=== PATIENT | female | born 1960 | race Caucasian/White ===

== ENCOUNTER 2018-05-13 09:33 | Emergency (ER) | payer OTHER ==
[~2018-05-13] VITALS: Ht 165.1 cm; Wt 86.2 kg
[~2018-05-13 09:33] MED LIST: ALBU90OI; ALBU90OI6 INH; ALPR1 PO; AMIT50; AMIT75; AMLO5 PO; AMOCLA875 PO; AMOX500 PO; AMPDEX10CR PO; ARIP10 PO; ASPI325EC PO; Amoxicillin500 MG PO; BENZ100A PO; CARB50; CARI350 PO; CEFD300; CEPH500; CEPH500 PO; CIPR250 PO; CIPR500; CIPR500 PO; CIPRO500 MG PO; CLIN300; CLON.5; CLON1; CLOT1TL; CYAN1000I; DEXT10ER PO; DIAZ2 PO; DOCU100; DULO30 PO; ERGO400; FERR325; FLUO10 PO; FLUO20; FLUSAL1005; FLUSAL2505; HYDACE10B; HYDACE5 PO; HYDHCL25 PO; IBUP200; IRON; KETO10 PO; LEVFLO500 PO; LIOT25; LIOT5; LORA1; LORA1 PO; LORA2 PO; METPRE4DP PO; MULVITA; MULVITMIND PO; NAPR550 PO; NARDIL; NITR100CA; Norco 10-325 T1 EACH PO; Norco 5-325 Ta1 EACH PO; Norvasc5 MG PO; OMEP20ER; ONDA4 PO; OXYACE5T; OXYACE5T PO; OXYASA5T PO; OXYC10TA19 PO; OXYC5 PO; PHENA200 PO; PRAM.5; PRED10 PO; PREG50; PREG75; PROACE100 PO; PROM25 PO; Percocet 5-3251 EACH PO; QUET100; RXHYDACE PO; RXNAPNA550 PO; TRAM50; TRAM50 PO; VITA25000 PO; Vicoprofen 2001 EACH PO; ZOLP5; Zofran Odt4 MG SL
[2018-05-13] MEDS ORDERED: AMLO5 PO (09:49)
[2018-05-13] MEDS ORDERED: ALPR1 PO (09:49)
[2018-05-13] MEDS ORDERED: PROP10 PO (09:50)
[2018-05-13 10:34] LABS: BASOPHILS ABSOLUTE AUTO 0.02 K/mm3 (0.00-0.23); BASOPHILS PERCENT AUTO 0 % (0-2); EOSINOPHILS ABSOLUTE AUTO 0.12 K/mm3 (0.00-0.68); EOSINOPHILS PERCENT AUTO 2 % (0-6); Hematocrit 41.3 % (33.0-51.0); Hemoglobin 13.1 g/dL (11.5-16.0); IMMATURE GRAN ABSOLUTE AUTO 0.01 K/mm3 (0.00-0.10); IMMATURE GRAN PERCENT AUTO 0 % (0-1); LYMPHOCYTES ABSOLUTE AUTO 1.45 K/mm3 (0.84-5.20); LYMPHOCYTES PERCENT AUTO 25 % (21-46); MONOCYTES ABSOLUTE AUTO 0.54 K/mm3 (0.16-1.47); MONOCYTES PERCENT AUTO 9 % (4-13); Mean Corpuscular HGB 26.8 pg (26.0-34.0); Mean Corpuscular HGB Conc 31.7 g/dL (31.5-36.5); Mean Corpuscular Volume 85 fL (80-100); NEUTROPHILS ABSOLUTE AUTO 3.61 K/mm3 (1.96-9.15); NEUTROPHILS PERCENT AUTO 63 % (41-73); RDW Coefficient Variation 14.2 % (11.7-14.2); RDW Standard Deviation 43.8 fL (35.1-46.3); Red Blood Cell Count 4.89 M/mm3 (3.80-5.20); White Blood Cell Count 5.75 K/mm3 (4.00-11.30)
[2018-05-13 10:52] LABS: Mean Platelet Volume 10.2 fL (9.1-12.4); Platelet Count 202 K/mm3 (150-400)
[2018-05-13 10:57] LABS: Alanine Aminotransfer (ALT/SGP 20 U/L (12-78); Albumin, Blood 3.5 g/dL (3.4-5.0); Alk Phos 88 U/L (50-136); Anion Gap 7 mmol/L (6-16); Aspartate Aminotrans (AST/SGOT 31 U/L (12-37); Bilirubin, Total 0.5 mg/dL (0.1-1.0); Blood Urea Nitrogen 20 mg/dL (8-24); Bun/Creatinine Ratio 25.4 (12.0-20.0); CO2, Blood 28 mmol/L (21-32); Calcium, Blood 8.7 mg/dL (8.5-10.1); Chloride, Blood 105 mmol/L (98-108); Creatinine, Blood 0.79 mg/dL (0.40-1.00); Globulin, Blood 3.5 g/dL (2.2-4.0); Glomerular Filtration Rate >60 (60-); Glucose, Blood 103 mg/dL (70-99); Potassium, Blood 4.2 mmol/L (3.5-5.5); Sodium, Blood 140 mmol/L (136-145)
[2018-05-13 11:57] LABS: Source, Urine Clean Catch
[2018-05-13 12:02] LABS: Bilirubin, Urine Neg (Neg); Blood, Urine 5+ (Neg); Glucose Qualitative, Urine Neg (Neg); Ketones, Urine Neg (Neg); Leukocyte Esterase, Urine 2+ (Neg); Nitrite, Urine Neg (Neg); Protein, Urine 2+ (Neg); Urobilinogen, Urine NORM (Normal)
[2018-05-13 12:29] LABS: Appearance, Urine Cloudy (Clear); Color, Urine Amber (P-Yellow)
[2018-05-13 12:31] LABS: Bacteria Few /hpf; Mucus Mod (0-Heavy); Red Blood Cells, Urine 50-100 /hpf (0-2); Squamous Epithelial Cells Few /hpf (Few)
[2018-05-13] MEDS ORDERED: Zofran Odt4 MG SL (12:59)
[2018-05-13] MEDS ORDERED: CEPH500 PO (12:59)
[2018-05-13] MEDS ORDERED: KETO10 PO (12:59)
[2018-05-13] MEDS ORDERED: Norco 5-325 Ta1 EACH PO (13:31)
[2018-05-13] MEDS ORDERED: Flomax0.4 MG PO (13:31)
== END 2018-05-13 13:45 | disposition home or self-care (01) ==
LOC: ER 09:33
PROVIDERS: Physician Assistant
DX: N13.2 Hydronephrosis with renal and ureteral calculous obstruction (principal); K57.30 Diverticulosis of large intestine without perforation or abscess without bleeding; N39.0 Urinary tract infection, site not specified; I10 Essential (primary) hypertension; F32.9 Major depressive disorder, single episode, unspecified; J45.909 Unspecified asthma, uncomplicated; Z88.5 Allergy status to narcotic agent; Z88.2 Allergy status to sulfonamides; Z88.6 Allergy status to analgesic agent; Z91.02 Food additives allergy status; Z79.899 Other long term (current) drug therapy; Z87.442 Personal history of urinary calculi
CPT/HCPCS: 36415; 74176; 80053; 81001; 83690; 85025; 87077; 87086; 87186; 96361; 96374; 96375; 99284-25; J1885; J2405; J7030

== ENCOUNTER 2021-03-31 12:14 | Emergency (ER) | payer OTHER ==
[~2021-03-31] VITALS: Ht 167.6 cm; Wt 86.2 kg
[~2021-03-31 12:14] MED LIST changes: +Flomax0.4 MG PO; +PROP10 PO
[2021-03-31 13:14] LABS: BASOPHILS ABSOLUTE AUTO 0.04 K/mm3 (0.00-0.23); BASOPHILS PERCENT AUTO 1 % (0-2); EOSINOPHILS ABSOLUTE AUTO 0.14 K/mm3 (0.00-0.68); EOSINOPHILS PERCENT AUTO 2 % (0-6); Hematocrit 39.8 % (33.0-51.0); IMMATURE GRAN ABSOLUTE AUTO 0.02 K/mm3 (0.00-0.10); IMMATURE GRAN PERCENT AUTO 0 % (0-1); LYMPHOCYTES ABSOLUTE AUTO 2.18 K/mm3 (0.84-5.20); LYMPHOCYTES PERCENT AUTO 33 % (21-46); MONOCYTES ABSOLUTE AUTO 0.58 K/mm3 (0.16-1.47); MONOCYTES PERCENT AUTO 9 % (4-13); Mean Corpuscular HGB Conc 30.2 g/dL (31.5-36.5); Mean Corpuscular Volume 76 fL (80-100); Mean Platelet Volume 9.6 fL (9.1-12.4); NEUTROPHILS PERCENT AUTO 55 % (41-73); Platelet Count 378 K/mm3 (150-400); RDW Coefficient Variation 16.8 % (11.7-14.2); RDW Standard Deviation 45.1 fL (35.1-46.3); Red Blood Cell Count 5.22 M/mm3 (3.80-5.20); White Blood Cell Count 6.56 K/mm3 (4.00-11.30)
[2021-03-31 13:34] LABS: Alanine Aminotransfer (ALT/SGP 19 U/L (12-78); Albumin, Blood 3.7 g/dL (3.4-5.0); Albumin/Globulin Ratio 0.9 (0.8-1.8); Alk Phos 104 U/L (50-136); Anion Gap 4 mmol/L (6-16); Aspartate Aminotrans (AST/SGOT 18 U/L (12-37); Bilirubin, Total 0.2 mg/dL (0.1-1.0); Blood Urea Nitrogen 19 mg/dL (8-24); Bun/Creatinine Ratio 24.6 (12.0-20.0); CO2, Blood 28 mmol/L (21-32); Calcium, Blood 8.7 mg/dL (8.5-10.1); Chloride, Blood 104 mmol/L (98-108); Creatinine, Blood 0.77 mg/dL (0.40-1.00); Globulin, Blood 4.2 g/dL (2.2-4.0); Glomerular Filtration Rate >60 (60-); Glucose, Blood 99 mg/dL (70-99); Potassium, Blood 4.3 mmol/L (3.5-5.5); Sodium, Blood 136 mmol/L (136-145); Total Protein, Blood 7.9 g/dL (6.4-8.2); Troponin I <0.015 ng/mL (0.000-0.040)
[2021-03-31] MEDS ORDERED: LASIX20 M2 PO (15:15)
[2021-03-31] MEDS ORDERED: POTCHL20ER PO (15:15)
== END 2021-03-31 15:25 | disposition home or self-care (01) ==
LOC: ER 12:14
PROVIDERS: Physician Assistant
DX: I11.0 Hypertensive heart disease with heart failure (principal); I50.9 Heart failure, unspecified; J45.909 Unspecified asthma, uncomplicated; Z79.899 Other long term (current) drug therapy; Z87.442 Personal history of urinary calculi
CPT/HCPCS: 36415; 71046; 80053; 83880; 84484; 85025; 93005; 93010; 99284-25

== ENCOUNTER → 2022-05-22 | Outpatient (CLI) | payer OTHER ==
[~2022-05-22] MED LIST changes: +LASIX20 M2 PO; +POTCHL20ER PO
[2022-05-22 18:53] LABS: BASOPHILS ABSOLUTE AUTO 0.07 K/mm3 (0.00-0.23); BASOPHILS PERCENT AUTO 1 % (0-2); EOSINOPHILS ABSOLUTE AUTO 0.04 K/mm3 (0.00-0.68); EOSINOPHILS PERCENT AUTO 0 % (0-6); Hemoglobin 15.1 g/dL (11.5-16.0); IMMATURE GRAN ABSOLUTE AUTO 0.03 K/mm3 (0.00-0.10); IMMATURE GRAN PERCENT AUTO 0 % (0-1); LYMPHOCYTES ABSOLUTE AUTO 2.02 K/mm3 (0.84-5.20); LYMPHOCYTES PERCENT AUTO 17 % (21-46); MONOCYTES ABSOLUTE AUTO 0.81 K/mm3 (0.16-1.47); MONOCYTES PERCENT AUTO 7 % (4-13); Mean Corpuscular HGB 26.4 pg (26.0-34.0); Mean Corpuscular HGB Conc 31.5 g/dL (31.5-36.5); Mean Corpuscular Volume 84 fL (80-100); Mean Platelet Volume 11.2 fL (9.1-12.4); NEUTROPHILS ABSOLUTE AUTO 8.93 K/mm3 (1.96-9.15); NEUTROPHILS PERCENT AUTO 75 % (41-73); Platelet Count 337 K/mm3 (150-400); RDW Coefficient Variation 15.5 % (11.7-14.2); RDW Standard Deviation 47.3 fL (35.1-46.3); Red Blood Cell Count 5.71 M/mm3 (3.80-5.20)
[2022-05-22 21:32] LABS: Alanine Aminotransfer (ALT/SGP 25 U/L (12-78); Albumin, Blood 3.8 g/dL (3.4-5.0); Alk Phos 97 U/L (50-136); Anion Gap 13 mmol/L (6-16); Aspartate Aminotrans (AST/SGOT 27 U/L (12-37); Bilirubin, Total 0.4 mg/dL (0.1-1.0); Blood Urea Nitrogen 17 mg/dL (8-24); Bun/Creatinine Ratio 23.2 (12.0-20.0); CHOL/HDL RATIO 4.1; CO2, Blood 23 mmol/L (21-32); Calcium, Blood 9.7 mg/dL (8.5-10.1); Chloride, Blood 106 mmol/L (98-108); Cholesterol 230 mg/dL (50-200); Creatinine, Blood 0.73 mg/dL (0.40-1.00); Glomerular Filtration Rate 95 (60-); Glucose, Blood 112 mg/dL (70-99); HDL Cholesterol 56 mg/dL (>39); LDL/HDL RATIO 2.5; Low Density Lipoprotein Chol 141 mg/dL (0-110); Sodium, Blood 142 mmol/L (136-145); Thyroid Stimulating Hormone 0.987 uIU/mL (0.360-4.800); Total Protein, Blood 7.8 g/dL (6.4-8.2); Triglycerides 165 mg/dL (30-160); Very Low Density Lipoprot Chol 33 mg/dL (6-32)
== END | disposition home or self-care (01) ==
LOC: LAB SHORT 17:46 → LAB 17:46
PROVIDERS: Nurse Practitioner Family
DX: Z13.220 Encounter for screening for lipoid disorders (principal); F41.8 Other specified anxiety disorders; R53.83 Other fatigue
CPT/HCPCS: 80053; 80061; 84443; 85025

== ENCOUNTER → 2022-05-22 | Outpatient (CLI) | payer OTHER | END | disposition home or self-care (01) | LOC: LAB 15:30 → LAB SHORT 15:30 | DX: R31.9 Hematuria, unspecified (principal) | CPT/HCPCS: 87086 ==

== ENCOUNTER 2022-08-17 11:37 | Emergency (ER) | payer OTHER ==
[~2022-08-17] VITALS: Ht 167.6 cm; Wt 72.6 kg
[2022-08-17 13:16] LABS: BASOPHILS ABSOLUTE AUTO 0.04 K/mm3 (0.00-0.23); BASOPHILS PERCENT AUTO 1 % (0-2); EOSINOPHILS ABSOLUTE AUTO 0.08 K/mm3 (0.00-0.68); EOSINOPHILS PERCENT AUTO 1 % (0-6); Hematocrit 43.8 % (33.0-51.0); Hemoglobin 13.6 g/dL (11.5-16.0); IMMATURE GRAN ABSOLUTE AUTO 0.01 K/mm3 (0.00-0.10); IMMATURE GRAN PERCENT AUTO 0 % (0-1); LYMPHOCYTES ABSOLUTE AUTO 1.35 K/mm3 (0.84-5.20); LYMPHOCYTES PERCENT AUTO 16 % (21-46); MONOCYTES ABSOLUTE AUTO 0.61 K/mm3 (0.16-1.47); MONOCYTES PERCENT AUTO 7 % (4-13); Mean Corpuscular HGB 25.7 pg (26.0-34.0); Mean Corpuscular HGB Conc 31.1 g/dL (31.5-36.5); Mean Corpuscular Volume 83 fL (80-100); Mean Platelet Volume 9.8 fL (9.1-12.4); NEUTROPHILS ABSOLUTE AUTO 6.17 K/mm3 (1.96-9.15); NEUTROPHILS PERCENT AUTO 75 % (41-73); Platelet Count 352 K/mm3 (150-400); RDW Coefficient Variation 14.6 % (11.7-14.2); RDW Standard Deviation 43.8 fL (35.1-46.3); White Blood Cell Count 8.26 K/mm3 (4.00-11.30)
[2022-08-17 13:53] LABS: Albumin, Blood 3.4 g/dL (3.4-5.0); Albumin/Globulin Ratio 0.9 (0.8-1.8); Bilirubin, Total 0.5 mg/dL (0.1-1.0); Bun/Creatinine Ratio 16.8 (12.0-20.0); Calcium, Blood 9.4 mg/dL (8.5-10.1); Creatinine, Blood 0.78 mg/dL (0.40-1.00); Globulin, Blood 3.7 g/dL (2.2-4.0); Potassium, Blood 3.7 mmol/L (3.5-5.5); Total Protein, Blood 7.1 g/dL (6.4-8.2)
[2022-08-17] MEDS ORDERED: ZOLP10 PO (15:29)
== END 2022-08-17 16:58 | disposition home or self-care (01) ==
LOC: ER 11:37
PROVIDERS: Physician Assistant
DX: R06.00 Dyspnea, unspecified (principal); I10 Essential (primary) hypertension; J45.909 Unspecified asthma, uncomplicated; Z88.5 Allergy status to narcotic agent; Z88.2 Allergy status to sulfonamides; Z88.8 Allergy status to other drugs, medicaments and biological substances; Z91.02 Food additives allergy status; Z79.899 Other long term (current) drug therapy
CPT/HCPCS: 36415; 71046; 80053; 83690; 84484; 85025; 93005; 93010

== ENCOUNTER 2022-08-19 12:08 | Emergency (ER) | payer OTHER ==
[~2022-08-19] VITALS: Ht 165.1 cm; Wt 90.7 kg
[~2022-08-19 12:08] MED LIST changes: +ZOLP10 PO
[2022-08-19 12:47] LABS: BASOPHILS ABSOLUTE AUTO 0.03 K/mm3 (0.00-0.23); BASOPHILS PERCENT AUTO 0 % (0-2); EOSINOPHILS ABSOLUTE AUTO 0.18 K/mm3 (0.00-0.68); EOSINOPHILS PERCENT AUTO 2 % (0-6); Hematocrit 41.3 % (33.0-51.0); Hemoglobin 13.4 g/dL (11.5-16.0); IMMATURE GRAN ABSOLUTE AUTO 0.02 K/mm3 (0.00-0.10); IMMATURE GRAN PERCENT AUTO 0 % (0-1); LYMPHOCYTES ABSOLUTE AUTO 1.83 K/mm3 (0.84-5.20); LYMPHOCYTES PERCENT AUTO 20 % (21-46); MONOCYTES PERCENT AUTO 9 % (4-13); Mean Corpuscular HGB 25.9 pg (26.0-34.0); Mean Corpuscular HGB Conc 32.4 g/dL (31.5-36.5); Mean Corpuscular Volume 80 fL (80-100); Mean Platelet Volume 9.8 fL (9.1-12.4); NEUTROPHILS ABSOLUTE AUTO 6.13 K/mm3 (1.96-9.15); NEUTROPHILS PERCENT AUTO 68 % (41-73); Platelet Count 347 K/mm3 (150-400); RDW Coefficient Variation 14.6 % (11.7-14.2); RDW Standard Deviation 42.5 fL (35.1-46.3); Red Blood Cell Count 5.17 M/mm3 (3.80-5.20); White Blood Cell Count 8.99 K/mm3 (4.00-11.30)
[2022-08-19 13:27] LABS: Albumin, Blood 3.2 g/dL (3.4-5.0); Albumin/Globulin Ratio 0.8 (0.8-1.8); Bilirubin, Total 0.6 mg/dL (0.1-1.0); Bun/Creatinine Ratio 13.1 (12.0-20.0); Calcium, Blood 9.4 mg/dL (8.5-10.1); Creatinine, Blood 0.76 mg/dL (0.40-1.00); Globulin, Blood 4.2 g/dL (2.2-4.0); Potassium, Blood 3.7 mmol/L (3.5-5.5); Total Protein, Blood 7.4 g/dL (6.4-8.2)
[2022-08-19] MEDS ORDERED: IBUP800 PO (16:28)
[2022-08-19] MEDS ORDERED: AMOCLA875 PO (16:28)
[2022-08-19] MEDS ORDERED: ONDA4ODT MM (16:28)
[2022-08-19] MEDS ORDERED: Almacone Liqui355 ML PO (16:28)
[2022-08-19] MEDS ORDERED: MORP15ER PO (16:29)
== END 2022-08-19 18:00 | disposition home or self-care (01) ==
LOC: ER 12:08
PROVIDERS: Physician Assistant
DX: K57.32 Diverticulitis of large intestine without perforation or abscess without bleeding (principal); I10 Essential (primary) hypertension; J45.909 Unspecified asthma, uncomplicated; M79.7 Fibromyalgia; Z88.5 Allergy status to narcotic agent; Z88.2 Allergy status to sulfonamides; Z91.02 Food additives allergy status; Z79.899 Other long term (current) drug therapy
CPT/HCPCS: 36415; 74177; 80053; 83690; 83735; 85025; A9270; J1885; J2270; J2405; J7030; Q9967

== ENCOUNTER 2022-09-22 12:07 | Emergency (ER) | payer OTHER ==
[~2022-09-22] VITALS: Ht 165.1 cm; Wt 90.7 kg
[~2022-09-22 12:07] MED LIST changes: +Almacone Liqui355 ML PO; +IBUP800 PO; +MORP15ER PO; +ONDA4ODT MM
[2022-09-22 12:44] LABS: BASOPHILS ABSOLUTE AUTO 0.03 K/mm3 (0.00-0.23); BASOPHILS PERCENT AUTO 1 % (0-2); EOSINOPHILS ABSOLUTE AUTO 0.14 K/mm3 (0.00-0.68); EOSINOPHILS PERCENT AUTO 2 % (0-6); Hematocrit 45.5 % (33.0-51.0); Hemoglobin 14.4 g/dL (11.5-16.0); IMMATURE GRAN ABSOLUTE AUTO 0.02 K/mm3 (0.00-0.10); IMMATURE GRAN PERCENT AUTO 0 % (0-1); LYMPHOCYTES ABSOLUTE AUTO 1.71 K/mm3 (0.84-5.20); LYMPHOCYTES PERCENT AUTO 26 % (21-46); MONOCYTES ABSOLUTE AUTO 0.57 K/mm3 (0.16-1.47); MONOCYTES PERCENT AUTO 9 % (4-13); Mean Corpuscular HGB 25.5 pg (26.0-34.0); Mean Corpuscular HGB Conc 31.6 g/dL (31.5-36.5); Mean Corpuscular Volume 81 fL (80-100); Mean Platelet Volume 10.5 fL (9.1-12.4); NEUTROPHILS ABSOLUTE AUTO 4.15 K/mm3 (1.96-9.15); NEUTROPHILS PERCENT AUTO 63 % (41-73); Platelet Count 305 K/mm3 (150-400); RDW Coefficient Variation 15.5 % (11.7-14.2); RDW Standard Deviation 45.5 fL (35.1-46.3); Red Blood Cell Count 5.64 M/mm3 (3.80-5.20); White Blood Cell Count 6.62 K/mm3 (4.00-11.30)
[2022-09-22 13:00] LABS: Albumin, Blood 3.3 g/dL (3.4-5.0); Albumin/Globulin Ratio 0.8 (0.8-1.8); Bilirubin, Total 0.4 mg/dL (0.1-1.0); Bun/Creatinine Ratio 14.7 (12.0-20.0); Calcium, Blood 9.1 mg/dL (8.5-10.1); Creatinine, Blood 0.75 mg/dL (0.40-1.00); Globulin, Blood 4.4 g/dL (2.2-4.0); Potassium, Blood 3.7 mmol/L (3.5-5.5); Total Protein, Blood 7.7 g/dL (6.4-8.2)
[2022-09-22] MEDS ORDERED: Norco 5-325 Ta1 EACH PO (16:21)
== END 2022-09-22 16:36 | disposition home or self-care (01) ==
LOC: ER 12:07
PROVIDERS: Physician Assistant
DX: K57.30 Diverticulosis of large intestine without perforation or abscess without bleeding (principal); I10 Essential (primary) hypertension; M79.7 Fibromyalgia; J45.909 Unspecified asthma, uncomplicated; Z88.5 Allergy status to narcotic agent; Z88.2 Allergy status to sulfonamides; Z91.02 Food additives allergy status; Z79.899 Other long term (current) drug therapy
CPT/HCPCS: 74177; 80053; 83690; 85025; A9270; Q9967

== ENCOUNTER 2022-10-31 11:40 | Day surgery (SDC) | payer OTHER ==
[~2022-10-31] VITALS: Ht 165.1 cm; Wt 93.3 kg
[~2022-10-31 11:40] MED LIST changes: +ALBU90OI INH
--- NOTE | 2022-10-31 15:38 | NUR ---
10/31/22 1538 DUSTIN MIDDLETON VERBAL ORDER GIVEN BY DR HENDERSON FOR UPRIGHT CXR/ ORDER [id number]. DLB/ TCR VERBAL ORDER FOR KETORALAC 15MG IV PER DR HENDERSON FOR PT 4/10 ALL OVER PAIN
== END 2022-10-31 16:52 | disposition home or self-care (01) ==
LOC: ORSCSDS 11:40
PROVIDERS: Surgery
PROC: 0DB78ZX Excision of Stomach, Pylorus, Via Natural or Artificial Opening Endoscopic, Diagnostic (ICD-10-PCS; principal; 2022-10-31 13:00)
PROC: 0DDP8ZX Extraction of Rectum, Via Natural or Artificial Opening Endoscopic, Diagnostic (ICD-10-PCS; principal; 2022-10-31 13:00)
PROC: 0D758ZZ Dilation of Esophagus, Via Natural or Artificial Opening Endoscopic (ICD-10-PCS; principal; 2022-10-31 13:00)
PROC: 0DB48ZX Excision of Esophagogastric Junction, Via Natural or Artificial Opening Endoscopic, Diagnostic (ICD-10-PCS; principal; 2022-10-31 13:00)
DX: K50.919 Crohn's disease, unspecified, with unspecified complications (principal); K21.00 Gastro-esophageal reflux disease with esophagitis, without bleeding; D12.8 Benign neoplasm of rectum; K62.1 Rectal polyp; R13.14 Dysphagia, pharyngoesophageal phase; E78.5 Hyperlipidemia, unspecified; I10 Essential (primary) hypertension; F31.81 Bipolar II disorder; J45.909 Unspecified asthma, uncomplicated; Z79.899 Other long term (current) drug therapy
CPT/HCPCS: 71046; 88305; 88312; C1726; J1885; J2250; J2704; J3010; J7120

== ENCOUNTER 2023-11-14 10:17 | Inpatient (IN) | payer OTHER ==
[~2023-11-14] VITALS: Ht 167.6 cm; Wt 82.5 kg
[~2023-11-14 10:17] MED LIST changes: +Flagyl500 MG PO; +IBUP600 PO
[2023-11-14 11:05] LABS: BASOPHILS ABSOLUTE AUTO 0.03 K/mm3 (0.00-0.23); BASOPHILS PERCENT AUTO 0 % (0-2); EOSINOPHILS ABSOLUTE AUTO 0.12 K/mm3 (0.00-0.68); EOSINOPHILS PERCENT AUTO 1 % (0-6); Hematocrit 42.4 % (33.0-51.0); Hemoglobin 13.6 g/dL (11.5-16.0); IMMATURE GRAN ABSOLUTE AUTO 0.01 K/mm3 (0.00-0.10); IMMATURE GRAN PERCENT AUTO 0 % (0-1); LYMPHOCYTES ABSOLUTE AUTO 1.33 K/mm3 (0.84-5.20); LYMPHOCYTES PERCENT AUTO 16 % (21-46); MONOCYTES ABSOLUTE AUTO 0.65 K/mm3 (0.16-1.47); MONOCYTES PERCENT AUTO 8 % (4-13); Mean Corpuscular HGB 26.8 pg (26.0-34.0); Mean Corpuscular HGB Conc 32.1 g/dL (31.5-36.5); Mean Corpuscular Volume 84 fL (80-100); Mean Platelet Volume 9.6 fL (9.1-12.4); NEUTROPHILS ABSOLUTE AUTO 6.16 K/mm3 (1.96-9.15); NEUTROPHILS PERCENT AUTO 74 % (41-73); Platelet Count 345 K/mm3 (150-400); RDW Coefficient Variation 15.7 % (11.7-14.2); RDW Standard Deviation 47.8 fL (35.1-46.3); Red Blood Cell Count 5.08 M/mm3 (3.80-5.20)
[2023-11-14] MEDS ORDERED: Ketorolac Tromethamine 30mg Vial IV ONE (12:10)
[2023-11-14] MEDS ORDERED: Piperacillin/Tazobactam Sod 3.375 GM in NS 50 ML IV ONE (12:10)
[2023-11-14] MEDS ORDERED: NS 1,000 ML IV SCH (12:10)
[2023-11-14 12:36] LABS: Albumin/Globulin Ratio 0.7 (0.8-1.8); Bilirubin, Total 0.5 mg/dL (0.1-1.0); Bun/Creatinine Ratio 23.5 (12.0-20.0); Calcium, Blood 9.2 mg/dL (8.5-10.1); Creatinine, Blood 0.72 mg/dL (0.40-1.00); Globulin, Blood 4.3 g/dL (2.2-4.0); Potassium, Blood 3.6 mmol/L (3.5-5.5); Total Protein, Blood 7.3 g/dL (6.4-8.2)
[2023-11-14 13:33] LABS: Source, Urine Clean Catch
[2023-11-14 13:42] LABS: Blood, Urine 1+ (Neg); Glucose Qualitative, Urine Neg (Neg); Ketones, Urine 3+ (Neg); Leukocyte Esterase, Urine 1+ (Neg); Nitrite, Urine Pos (Neg); Protein, Urine 1+ (Neg); Urobilinogen, Urine 3+ (Normal); pH, Urine 6.5 (5.0-8.0)
[2023-11-14] MEDS ORDERED: Zolpidem Tartrate 5 MG Tab PO PRN (13:45)
[2023-11-14] MEDS ORDERED: FentaNYL Citrate 50 MCG/ML 2 ML Injection IV PRN ×2 (13:45→15:25)
[2023-11-14 14:06] LABS: Appearance, Urine Hazy (Clear); Bilirubin, Urine 3+ (Neg); Color, Urine Orange (P-Yellow)
[2023-11-14 14:08] LABS: Bacteria Many /hpf; Transitional Epithelial Cells Rare /hpf (0-Rare)
[2023-11-14 14:09] LABS: Calcium Oxalate Crystals Rare /hpf; Squamous Epithelial Cells Mod /hpf (Few)
[2023-11-14 15:06] VITALS: BP 173/107
[2023-11-14] MEDS ORDERED: Prozac20 MG PO (15:07)
[2023-11-14] MEDS ORDERED: NAPR220 PO (15:08)
[2023-11-14] MEDS ORDERED: HydrALAZINE HCl 20 MG / ML 1ML Vial IV PRN (15:15)
[2023-11-14] MEDS ORDERED: Lactated Ringer's 1,000 ML IV SCH (16:00)
[2023-11-14] MEDS ORDERED: Ondansetron HCl 2 MG / ML 2ML Vial IV PRN (16:00)
[2023-11-14] MEDS ORDERED: Ketorolac Tromethamine 15mg Vial IV PRN (16:05)
[2023-11-14 17:21] VITALS: BP 177/119
[2023-11-14 17:49] VITALS: BP 159/104
[2023-11-14] MEDS ORDERED: Piperacillin/Tazobactam Sod 3.375 GM in NS 50 ML IV SCH (18:00)
[2023-11-14 19:33] VITALS: BP 162/104
[2023-11-14 20:00] VITALS: BP 157/95
--- NOTE | 2023-11-14 20:16 | NUR ---
SHIFT SUMMARY PT HAS HAD INT ABD PAIN IN LOWER ABD. MEDICATED x 1 FOR NAUSEA; NO EMESIS. IVF & ABX INFUSED ORDERED. HTN CONT's. MEDICATED x 1 w/ 10MG HYDRALIZE. UP IND TO BATHROOM TO VOID; UNDERSTANDS TO CALL FOR ASSISTANCE IF NEEDED.
[2023-11-15 01:30] VITALS: BP 150/94
[2023-11-15 03:44] VITALS: BP 135/86
[2023-11-15 04:18] LABS: BASOPHILS ABSOLUTE AUTO 0.03 K/mm3 (0.00-0.23); BASOPHILS PERCENT AUTO 0 % (0-2); EOSINOPHILS ABSOLUTE AUTO 0.07 K/mm3 (0.00-0.68); EOSINOPHILS PERCENT AUTO 1 % (0-6); Hematocrit 36.1 % (33.0-51.0); Hemoglobin 11.6 g/dL (11.5-16.0); IMMATURE GRAN ABSOLUTE AUTO 0.02 K/mm3 (0.00-0.10); IMMATURE GRAN PERCENT AUTO 0 % (0-1); LYMPHOCYTES ABSOLUTE AUTO 0.99 K/mm3 (0.84-5.20); LYMPHOCYTES PERCENT AUTO 14 % (21-46); MONOCYTES ABSOLUTE AUTO 0.71 K/mm3 (0.16-1.47); MONOCYTES PERCENT AUTO 10 % (4-13); Mean Corpuscular HGB 26.5 pg (26.0-34.0); Mean Corpuscular HGB Conc 32.1 g/dL (31.5-36.5); Mean Corpuscular Volume 83 fL (80-100); NEUTROPHILS ABSOLUTE AUTO 5.12 K/mm3 (1.96-9.15); NEUTROPHILS PERCENT AUTO 74 % (41-73); Platelet Count 351 K/mm3 (150-400); RDW Coefficient Variation 15.8 % (11.7-14.2); RDW Standard Deviation 47.8 fL (35.1-46.3); Red Blood Cell Count 4.37 M/mm3 (3.80-5.20); White Blood Cell Count 6.94 K/mm3 (4.00-11.30)
[2023-11-15 04:59] LABS: Albumin, Blood 2.7 g/dL (3.4-5.0); Albumin/Globulin Ratio 0.7 (0.8-1.8); Bilirubin, Total 0.6 mg/dL (0.1-1.0); Bun/Creatinine Ratio 18.3 (12.0-20.0); Calcium, Blood 8.5 mg/dL (8.5-10.1); Creatinine, Blood 0.6 mg/dL (0.40-1.00); Globulin, Blood 3.7 g/dL (2.2-4.0); Potassium, Blood 3.6 mmol/L (3.5-5.5); Total Protein, Blood 6.4 g/dL (6.4-8.2)
[2023-11-15 07:39] VITALS: BP 155/92
--- NOTE | 2023-11-15 07:46 | NUR ---
SUMMARY PT C/O ABD CRAMPING AT TIMES. MED WITH FENTANYL AND TORADOL TONIGHT. MED WITH ZOFRAN X 1. NURSING WAX PATTERN ASSEMBLER PAULINE WILL BE CONTACTING INTERVENTIONAL RADIOLOGY PER CX ORDER.
[2023-11-15] MEDS ORDERED: Zolpidem Tartrate 10 MG Tab PO PRN (09:55)
[2023-11-15] MEDS ORDERED: Ondansetron 4 MG SoluTab MM PRN (10:00)
[2023-11-15] MEDS ORDERED: HYDROmorphone HCl/Pf 1MG SYR IV PRN ×2 (10:00→12:20)
--- NOTE | 2023-11-15 11:27 | NUR ---
DR MOYA IN TO SEE PT.
[2023-11-15] MEDS ORDERED: NS 50 ML IV ONE (11:53)
[2023-11-15] MEDS ORDERED: FLUoxetine HCL 20 MG CAP PO SCH (12:30)
[2023-11-15] MEDS ORDERED: Nystatin 100,000 Unit/ML Susp 5 ML UDC MT SCH (13:00)
[2023-11-15 14:06] VITALS: BP 140/76
--- NOTE | 2023-11-15 14:18 | NUR ---
Pt. is awake in bed and welcomes my visit. Pt. is pleasant. Facilitataed a life review and considered matters of eugenia and belief. Pt. verbalized the wonderful care she has received during this hospitalization. Pt. verbalized gratitiude for the spiritual care visit and welcomed this piano tuner to return.
--- NOTE | 2023-11-15 17:01 | NUR ---
R EAR PAIN PT C/O OF 07/01 R EAR ACHE. WANTED TO HAVE SPOUSE BRING IN GARLIC DROPS, DISCUSSED W/DR DOSS WHO RECOMMENDED PT NOT BRING IN WHILE IN HOSPITAL. GAVE PT WARM COMPRESS TO PLACE TO EAR AND MEDICATED PT W/15MG IV TORADOL PER ORDERS. PT RESTING IN BED. CALL LIGHT IN REACH.
--- NOTE | 2023-11-15 18:01 | NUR ---
summary no acute changes t/o shift. medicated once during shift w/dilaudid for abdominal pain. pt reports abdominal pain adequately controlled at this time. C/O r ear pain. administered toradol per orders and gave warm compress for comfort. pt reported r ear pain has improved from 07/01 to 03/31. voiding without difficulty. gets up independently to restroom.
[2023-11-15 18:31] VITALS: BP 148/96
[2023-11-15 22:39] VITALS: BP 159/93
[2023-11-16 07:02] VITALS: BP 143/90
[2023-11-16 07:58] LABS: BASOPHILS ABSOLUTE AUTO 0.03 K/mm3 (0.00-0.23); BASOPHILS PERCENT AUTO 1 % (0-2); EOSINOPHILS ABSOLUTE AUTO 0.12 K/mm3 (0.00-0.68); EOSINOPHILS PERCENT AUTO 2 % (0-6); Hematocrit 37.8 % (33.0-51.0); IMMATURE GRAN ABSOLUTE AUTO 0.02 K/mm3 (0.00-0.10); IMMATURE GRAN PERCENT AUTO 0 % (0-1); LYMPHOCYTES ABSOLUTE AUTO 0.97 K/mm3 (0.84-5.20); LYMPHOCYTES PERCENT AUTO 19 % (21-46); MONOCYTES PERCENT AUTO 12 % (4-13); Mean Corpuscular HGB 26.7 pg (26.0-34.0); Mean Corpuscular HGB Conc 31.7 g/dL (31.5-36.5); Mean Corpuscular Volume 84 fL (80-100); Mean Platelet Volume 9.2 fL (9.1-12.4); NEUTROPHILS ABSOLUTE AUTO 3.29 K/mm3 (1.96-9.15); NEUTROPHILS PERCENT AUTO 65 % (41-73); Platelet Count 310 K/mm3 (150-400); RDW Coefficient Variation 15.8 % (11.7-14.2); RDW Standard Deviation 47.8 fL (35.1-46.3); White Blood Cell Count 5.03 K/mm3 (4.00-11.30)
--- NOTE | 2023-11-16 08:28 | NUR ---
SUMMARY PT AMBULATORY,VOIDING.PT TAKING IV DILAUDID AND TORADOL FOR PAIN, ALTHOUGH SHE DOES REPORT SHE FEELS PAIN IS IMPROVING.
--- NOTE | 2023-11-16 08:47 | NUR ---
DR PEREA IN TO SEE PT DR DOSS IN EARLIER TO SEE PT.
[2023-11-16] MEDS ORDERED: Ofloxacin 0.3% Opth Soln 5 ML RIGHTEAR SCH (09:00)
[2023-11-16] MEDS ORDERED: Magnesium Hydroxide Conc 10 ML UDC PO SCH (09:00)
[2023-11-16 14:27] VITALS: BP 129/91
--- NOTE | 2023-11-16 16:36 | NUR ---
SUMMARY NO ACUTE CHANGES T/O SHIFT. PT ADVANCED TO CLEAR LIQUIDS. TOLERATING SMALL AMOUNTS OF CLEARS. MEDICATED PER ORDERS FOR PAIN. PT INDEPENDENT IN ROOM. IV FLUIDS INFUSING PER ORDERS. CALL LIGHT IN REACH. PT TALKING ON PHONE AT THIS TIME.
--- NOTE | 2023-11-16 17:02 | NUR ---
report given to lory mendez rn
[2023-11-16 20:28] VITALS: BP 163/97
[2023-11-17 04:01] VITALS: BP 129/98
--- NOTE | 2023-11-17 04:05 | NUR ---
SHIFT SUMMARY AOx4. BEGINNING OF SHIFT BP 163/97, PT UNRELAXED, TALKING & REPORTED PAIN @TIME. THIS AM BP 129/98. REST OF VSS. REPORTS 5/10 INFREQUENT SHARP LOW ABD & PELVIS PAIN, MEDICATED 1x c 0.5 IV DILAUDID & PAIN LEVEL DECREASED PER PT. HYPERACTIVE BT A4Q. PASSING FLATUS. REPORTS MILD NAUSEA, DENIED NEED FOR ZOFRAN & NO EMESIS OR FURTHER NAUSEA REPORTED. TOLERATING LIQUIDS. HAD UNWITNESSED BM THIS AM, STATES HARD CHUNKS c LIQUID. CALL LIGHT IN REACH, WILL MONITOR.
[2023-11-17 04:54] LABS: BASOPHILS ABSOLUTE AUTO 0.03 K/mm3 (0.00-0.23); BASOPHILS PERCENT AUTO 1 % (0-2); EOSINOPHILS ABSOLUTE AUTO 0.12 K/mm3 (0.00-0.68); EOSINOPHILS PERCENT AUTO 2 % (0-6); Hematocrit 39.7 % (33.0-51.0); Hemoglobin 12.5 g/dL (11.5-16.0); IMMATURE GRAN ABSOLUTE AUTO 0.01 K/mm3 (0.00-0.10); IMMATURE GRAN PERCENT AUTO 0 % (0-1); LYMPHOCYTES ABSOLUTE AUTO 0.94 K/mm3 (0.84-5.20); LYMPHOCYTES PERCENT AUTO 17 % (21-46); MONOCYTES ABSOLUTE AUTO 0.56 K/mm3 (0.16-1.47); MONOCYTES PERCENT AUTO 10 % (4-13); Mean Corpuscular HGB 26.6 pg (26.0-34.0); Mean Corpuscular HGB Conc 31.5 g/dL (31.5-36.5); Mean Corpuscular Volume 85 fL (80-100); Mean Platelet Volume 9.5 fL (9.1-12.4); NEUTROPHILS ABSOLUTE AUTO 3.93 K/mm3 (1.96-9.15); NEUTROPHILS PERCENT AUTO 70 % (41-73); Platelet Count 368 K/mm3 (150-400); RDW Coefficient Variation 15.9 % (11.7-14.2); RDW Standard Deviation 49.1 fL (35.1-46.3); White Blood Cell Count 5.59 K/mm3 (4.00-11.30)
[2023-11-17 05:15] LABS: Bun/Creatinine Ratio 6.1 (12.0-20.0); Calcium, Blood 8.8 mg/dL (8.5-10.1); Creatinine, Blood 0.66 mg/dL (0.40-1.00); Potassium, Blood 3.2 mmol/L (3.5-5.5)
[2023-11-17 07:15] VITALS: BP 123/73
[2023-11-17] MEDS ORDERED: Potassium Chloride 20 MEQ TabCR PO ONE (08:00)
[2023-11-17] MEDS ORDERED: NS KCL 40 mEq 1,000 ML IV SCH (08:35)
[2023-11-17] MEDS ORDERED: NS 50 ML IV ONE (11:48)
--- NOTE | 2023-11-17 12:53 | NUR ---
PT TOLERATING FULL LIQUIDS W/O DIFFICULTY, DENIES N/V. REPORTS FLATUS AND SMALL LOOSE BM. AMBULATING IN ROOM. PAIN WELL MANAGED WITH 0.5MG DILAUDID IVP, DOES NOT WISH TO TRY THE NORCO SHE SAYS IT MAKES HER NAUSEATED. CONTINUE IV ABX ORDERED.
[2023-11-17 14:18] VITALS: BP 139/84
--- NOTE | 2023-11-17 14:40 | NUR ---
ASSUMED CARE FROM PREVIOUS RN, PT RESTING IN BED AT THIS TIME, NO CURRENT NEEDS, PT UPDATED ON CHANGE IN STAFFING.
[2023-11-17] MEDS ORDERED: HydrALAZINE HCl 20 MG / ML 1ML Vial IV PRN (15:50)
[2023-11-17] MEDS ORDERED: OPTH RIGHTEAR SCH (21:00)
[2023-11-17] MEDS ORDERED: OFLOXACIN 0.3% RIGHTEAR SCH (21:00)
[2023-11-17 21:39] VITALS: BP 155/92
[2023-11-18 05:16] VITALS: BP 145/93
[2023-11-18 05:42] LABS: Bun/Creatinine Ratio 4.9 (12.0-20.0); Calcium, Blood 8.4 mg/dL (8.5-10.1); Creatinine, Blood 0.61 mg/dL (0.40-1.00); Potassium, Blood 3.7 mmol/L (3.5-5.5)
[2023-11-18 07:08] VITALS: BP 156/90
--- NOTE | 2023-11-18 07:14 | NUR ---
SHIFT SUMMARY AOx4. VSS. DENIES N/V, HAD 1 LOOSE BM THIS SHIFT. REPORTS 03/31 PAIN IN LOW ABD/PELVIS, MEDICATED 1x c 0.5 MG IVP DILAUDID & PT STATED MOD RELIEF. TOLERATING FULL LIQUIDS. CALL LIGHT IN REACH.
[2023-11-18] MEDS ORDERED: HYDR1TAB94 PO (13:40)
[2023-11-18] MEDS ORDERED: DULCOLAX400 MG/51 PO (13:49)
[2023-11-18] MEDS ORDERED: ONDA4ODT PO (13:50)
[2023-11-18] MEDS ORDERED: AMOCLA875 PO (13:50)
--- NOTE | 2023-11-18 14:34 | NUR ---
DISCHARGE PT DISCHARGED HOME FROM UNIT AT APROX 1530. PT GIVEN WRITTEN AND VERBAL DISCHARGE INSTRUCTIONS AND VERBALIZED UNDERSTANDING. IV REMOVED. ORDER FOR REPEAT CT SCAN FAXED TO PT PRIMARY CARE, NEW RX'S FAXED TO [facility] [address], HARD COPY FOR [facility] GIVEN TO PT, COPY ON CHART. WC TO CAR.
== END 2023-11-18 14:49 | disposition home or self-care (01) | DRG 391 ==
LOC: ER 10:17 → SURS 10:18
PROVIDERS: Family Medicine; Physician Assistant; Student in an Organized Health Care Education/Training Program; Surgery; ADMIT Internal Medicine
DX: K57.20 Diverticulitis of large intestine with perforation and abscess without bleeding (principal); K65.1 Peritoneal abscess; B37.0 Candidal stomatitis; I10 Essential (primary) hypertension; M19.90 Unspecified osteoarthritis, unspecified site; F32.A Depression, unspecified; M79.7 Fibromyalgia; J45.909 Unspecified asthma, uncomplicated; F41.9 Anxiety disorder, unspecified; G47.00 Insomnia, unspecified; E66.9 Obesity, unspecified; Z88.5 Allergy status to narcotic agent; Z88.2 Allergy status to sulfonamides; Z91.041 Radiographic dye allergy status; Z88.8 Allergy status to other drugs, medicaments and biological substances; Z68.29 Body mass index [BMI] 29.0-29.9, adult
CPT/HCPCS: 36415; 74177; 80048; 80053; 81001; 83690; 85025; 86141; 87086; 94760; 94762; 96361; 96365-59; 96366; 96375; 96376; 99285-25; A9270; G0378; J0360; J1170; J1885; J2405; J2543; J3010; J3480; J7030; J7120; Q9967

== ENCOUNTER 2023-11-29 09:16 | Inpatient (IN) | payer OTHER ==
[~2023-11-29] VITALS: Ht 165.1 cm; Wt 86.2 kg
[~2023-11-29 09:16] MED LIST changes: +DULCOLAX400 MG/51 PO; +HYDR1TAB94 PO; +NAPR220 PO; +ONDA4ODT PO; +Prozac20 MG PO
[2023-11-29 10:32] LABS: BASOPHILS ABSOLUTE AUTO 0.04 K/mm3 (0.00-0.23); BASOPHILS PERCENT AUTO 1 % (0-2); EOSINOPHILS ABSOLUTE AUTO 0.19 K/mm3 (0.00-0.68); EOSINOPHILS PERCENT AUTO 3 % (0-6); Hematocrit 44.8 % (33.0-51.0); Hemoglobin 14.3 g/dL (11.5-16.0); IMMATURE GRAN ABSOLUTE AUTO 0.01 K/mm3 (0.00-0.10); IMMATURE GRAN PERCENT AUTO 0 % (0-1); LYMPHOCYTES PERCENT AUTO 15 % (21-46); MONOCYTES PERCENT AUTO 9 % (4-13); Mean Corpuscular HGB 26.6 pg (26.0-34.0); Mean Corpuscular HGB Conc 31.9 g/dL (31.5-36.5); Mean Corpuscular Volume 83 fL (80-100); Mean Platelet Volume 9.3 fL (9.1-12.4); NEUTROPHILS ABSOLUTE AUTO 4.75 K/mm3 (1.96-9.15); NEUTROPHILS PERCENT AUTO 72 % (41-73); Platelet Count 329 K/mm3 (150-400); RDW Coefficient Variation 16.7 % (11.7-14.2); RDW Standard Deviation 51.3 fL (35.1-46.3); Red Blood Cell Count 5.38 M/mm3 (3.80-5.20); White Blood Cell Count 6.59 K/mm3 (4.00-11.30)
[2023-11-29 10:57] LABS: Albumin, Blood 3.2 g/dL (3.4-5.0); Albumin/Globulin Ratio 0.8 (0.8-1.8); Bilirubin, Total 0.3 mg/dL (0.1-1.0); Bun/Creatinine Ratio 13.8 (12.0-20.0); Creatinine, Blood 0.65 mg/dL (0.40-1.00); Globulin, Blood 3.9 g/dL (2.2-4.0); Potassium, Blood 3.6 mmol/L (3.5-5.5); Total Protein, Blood 7.1 g/dL (6.4-8.2)
[2023-11-29] MEDS ORDERED: Piperacillin/Tazobactam Sod 4.5 GM in NS 100 ML IV ONE (12:10)
[2023-11-29] MEDS ORDERED: HYDROmorphone HCl/Pf 1MG SYR IV PRN (14:05)
[2023-11-29] MEDS ORDERED: ALPRAZolam 0.25 MG Tab PO PRN (14:05)
[2023-11-29] MEDS ORDERED: Naloxone HCl 0.4MG / ML 1ML Vial IV PRN (14:10)
[2023-11-29] MEDS ORDERED: Lactated Ringer's 1,000 ML IV SCH (14:10)
[2023-11-29] MEDS ORDERED: Acetaminophen 325 MG TABLET PO PRN (14:10)
[2023-11-29] MEDS ORDERED: FLU VACC QS2023-24(6MOS UP)/PF 60 MCG/0.5 ML SYRINGE IM PRN (14:10)
[2023-11-29] MEDS ORDERED: HYDROmorphone HCl/Pf 1MG SYR ONE (14:11)
[2023-11-29 14:47] LABS: Percent Saturation 13.3 % (15.0-50.0)
[2023-11-29] MEDS ORDERED: Albuterol HFA200 ACT/6.7 GM INH INH PRN (14:50)
[2023-11-29] MEDS ORDERED: Ondansetron 4 MG SoluTab MM PRN (14:50)
[2023-11-29 17:09] VITALS: BP 155/104
[2023-11-29] MEDS ORDERED: Ampicillin Sod/Sulbactam Sod 3 GM in NS 100 ML IV SCH (18:00)
--- NOTE | 2023-11-29 18:48 | NUR ---
SHIFT SUMMARY PT A&OX4, VSS/RA, NPO, IVF @ 125 MLS/HR AND ABX PER EMAR, PAIN TREATED WITH O.5 MG DILAUDID, NAUSEA TREATED WITH ZOFRAN, AMB SBA/BSC, VOIDING. WILL REPORT TO ONCOMING NOC RN.
[2023-11-29 19:09] VITALS: BP 156/103
[2023-11-29] MEDS ORDERED: HYDROcodone 5-APAP 325 TAB PO PRN (19:50)
[2023-11-29] MEDS ORDERED: Lactobacil 2-S.Thermo-Bifido 1 1 Cap PO SCH (21:00)
[2023-11-29 21:20] VITALS: BP 96/38
[2023-11-29 21:23] VITALS: BP 95/44
[2023-11-30] VITALS (7 sets, daily range): BP systolic 104–155; BP diastolic 42–88
[2023-11-30 04:47] LABS: BASOPHILS ABSOLUTE AUTO 0.03 K/mm3 (0.00-0.23); BASOPHILS PERCENT AUTO 1 % (0-2); EOSINOPHILS PERCENT AUTO 2 % (0-6); Hematocrit 38.9 % (33.0-51.0); Hemoglobin 12.3 g/dL (11.5-16.0); IMMATURE GRAN ABSOLUTE AUTO 0.01 K/mm3 (0.00-0.10); IMMATURE GRAN PERCENT AUTO 0 % (0-1); LYMPHOCYTES PERCENT AUTO 23 % (21-46); MONOCYTES ABSOLUTE AUTO 0.66 K/mm3 (0.16-1.47); MONOCYTES PERCENT AUTO 13 % (4-13); Mean Corpuscular HGB 26.6 pg (26.0-34.0); Mean Corpuscular HGB Conc 31.6 g/dL (31.5-36.5); Mean Corpuscular Volume 84 fL (80-100); Mean Platelet Volume 9.7 fL (9.1-12.4); NEUTROPHILS ABSOLUTE AUTO 3.28 K/mm3 (1.96-9.15); NEUTROPHILS PERCENT AUTO 62 % (41-73); Platelet Count 277 K/mm3 (150-400); RDW Coefficient Variation 16.6 % (11.7-14.2); RDW Standard Deviation 50.9 fL (35.1-46.3); Red Blood Cell Count 4.62 M/mm3 (3.80-5.20); White Blood Cell Count 5.28 K/mm3 (4.00-11.30)
[2023-11-30 05:08] LABS: Bun/Creatinine Ratio 8.7 (12.0-20.0); Calcium, Blood 8.5 mg/dL (8.5-10.1); Creatinine, Blood 0.58 mg/dL (0.40-1.00); Potassium, Blood 3.5 mmol/L (3.5-5.5)
--- NOTE | 2023-11-30 08:31 | NUR ---
SUMMARY PT TOLERATING CLR LIQ IN SMALL AMNTS. NO STOOL SINCE ADMIT. TOLERATING PO PAIN MEDS AND HAS BEEN REPORTED MORE EFFECTIVE THAN DILAUDID FOR HEADACHE AND ABD PAIN.
[2023-11-30] MEDS ORDERED: HydrALAZINE HCl 20 MG / ML 1ML Vial IV PRN (11:15)
[2023-11-30] MEDS ORDERED: FLUoxetine HCL 20 MG CAP PO SCH (12:30)
[2023-11-30 13:02] LABS: SARS-Cov-2 (COVID-19) PCR, MMC NEGATIVE (NEGATIVE)
--- NOTE | 2023-11-30 13:38 | NUR ---
Review of symptoms, Re-Admission Chantal is lying supine, diagonally in hospital bed. She endorses a 3/10 headache, she believes is a possible sinus infection and result of acute cough the last 4 days. She is currently receiving Abx and pending result for COVID. Primary RN to administer PO Tylenol for headache. Chantal is unsettled with her current health status and pending surgical consultation. Reviewed code status: FULL code NO BLOOD PRODUCTS. No changes to code status at this time. Reviewed Advance Directive Booklet. Chantal reports she filled out an Advanced Directive last week assigning her as priamry proxy with dtr 2nd and sister 3rd. Dtr to bring in a signed copy of AD when she is able. Barriers to care: She currently relies on hsbd/dtr for care. Chantal has not been able to cook or clean for the last couple of months. She lives with her , Daughter and Grandson. Family has been preparing all meals. She reports she doesn't want to be negative and her family is doing the best they can. However, she is eating whatever they prepare. Example, "if they have pizza, I just eat the topping." Attempted education on diverticulitis diet was delayed in picking up her Abx on her d/c from 11/18/23. Major concern is mental health. Chantal stuggles with depression. This PC RN will look in to support groups for diverticulitis. Spiritual Care consultation order placed. Pt is JULIA but welcomes any spiritual care support. Primary RNAbby to print current diet recommendations for diverticulitis. This PC RN will remain available.
--- NOTE | 2023-11-30 18:13 | NUR ---
PT HAS BEEN STABLE THIS SHIFT. PT SELVIN SMALL AMTS CLEAR LIQUIDS. NO NAUSEA. PAIN MANAGEABLE WITH PRN MEDS. PT UP TO COMMODE INDEP AND VOIDING WELL. NO BM THIS SHIFT, C DIFF COLLECTION CANCELLED PER DR BISHOP. PT HAD NEGATIVE COVID TEST THIS SHIFT. XANAX NEEDED FOR OCCASIONAL ANXIETY. PT CALLS APPROPRIATELY NEEDED. NO PLAN FOR SURGERY AT THIS TIME. IF SURGERY NEEDED, POSSIBLE TRANSFER TO [facility].
[2023-12-01 04:26] VITALS: BP 124/80
--- NOTE | 2023-12-01 04:50 | NUR ---
SHIFT SUMMARY NO ACUTE CHANGES THROUGH THE NIGHT, VSS, ON RA, SELVIN SIPS CLEAR FLUIDS, VOIDING WNL, PASSING GAS, PAIN MANAGED W PO NORCO, LR INFUSING PER EMAR, RESTING QUIETLY AT THIS TIME, RESP UNLABORED. CALL LIGHT IN REACH, WCTM
[2023-12-01] MEDS ORDERED: NS 100 ML IV ONE (05:39)
[2023-12-01 07:14] VITALS: BP 157/96
[2023-12-01 15:39] VITALS: BP 155/93
[2023-12-01] MEDS ORDERED: Melatonin 5 MG Tablet PO PRN (16:15)
--- NOTE | 2023-12-01 18:35 | NUR ---
SHIFT SUMMARY PT RESTED IN BED INTERMITTENTLY T/O DAY. AAOX4/ANXIOUS AT TIMES. DISCOMFORT CONTROLLED WITH 2 NORCO X1 THIS SHIFT. NO NAUSEA/EMESIS. ANXIETY DECREASED WITH X1 XANAX. IVF + ABX PER ORDERS. NEW IV TO LEFT FA THIS AM. NEW ORDER FOR MELATONIN TO START TONIGHT TO HELP INSOMNIA. NO ACUTE CHANGES THIS SHIFT. PT CURRENTLY SITTING UP IN BED WITH CALL LIGHT IN REACH.
[2023-12-01 19:49] VITALS: BP 124/83
[2023-12-02 03:30] VITALS: BP 140/93
--- NOTE | 2023-12-02 05:07 | NUR ---
SHIFT SUMMARY NO ACUTE CHANGES OVER NIGHT, A&XO X4, VSS, RA, SELVIN PO, VOIDING WNL, PAIN MANAGED PER EMAR, INDEPENDENT IN ROOM, RESP UNLABORED, CALL LIGHT IN REACH
[2023-12-02 07:20] VITALS: BP 148/84
--- NOTE | 2023-12-02 14:46 | NUR ---
DISCHARGE PATIENT UP VOIDING, PASSING FLATUS. MEDICATED FOR PAIN, TOLERATING PO INTAKE. VITALS STABLE. DISCHARGE INSTRUCTIONS DISCUSSED, READ, AND SIGNED BY PATIENT. PRESCRIPTIONS INSIDE DISCHARGE NOTEBOOK AND PUT INPATIENTS BELONGINGS BAG. SPOUSE IN TO TAKE PATIENT OUT VIA WHEELCHAIR. SPOUSE NOTIFIED OF PRESCRIPTIONS AND DISCHARGE PACKET IN BELONGINGS.
== END 2023-12-02 11:55 | disposition home or self-care (01) | DRG 391 ==
LOC: ER 09:16 → SURS 16:06 → MEDS 16:06 → SURS 16:41
PROVIDERS: Physician Assistant; Student in an Organized Health Care Education/Training Program; ADMIT Internal Medicine
DX: K57.20 Diverticulitis of large intestine with perforation and abscess without bleeding (principal); K65.1 Peritoneal abscess; R19.7 Diarrhea, unspecified; I10 Essential (primary) hypertension; E78.5 Hyperlipidemia, unspecified; F32.9 Major depressive disorder, single episode, unspecified; F41.9 Anxiety disorder, unspecified; J44.9 Chronic obstructive pulmonary disease, unspecified; M79.7 Fibromyalgia; M19.90 Unspecified osteoarthritis, unspecified site; Z87.442 Personal history of urinary calculi; Z88.5 Allergy status to narcotic agent; Z88.8 Allergy status to other drugs, medicaments and biological substances; Z88.2 Allergy status to sulfonamides; Z79.891 Long term (current) use of opiate analgesic; Z79.1 Long term (current) use of non-steroidal anti-inflammatories (NSAID); Z11.52 Encounter for screening for COVID-19
CPT/HCPCS: 36415; 74177; 80048; 80053; 82728; 83540; 83550; 83690; 85025; 94640; 94664; 94760; 94762; 96365-59; 96375; 99285-25; A9270; J0295; J1170; J2543; J7120; Q9967; U0002

== ENCOUNTER 2025-05-31 09:55 | Emergency (ER) | payer OTHER ==
[~2025-05-31] VITALS: Ht 165.1 cm; Wt 81.7 kg
[~2025-05-31 09:55] MED LIST changes: +Cipro500 MG PO; +Roxicodone5 MG PO
[2025-05-31 10:04] VITALS: BP 161/117
[2025-05-31 10:21] LABS: BASOPHILS ABSOLUTE AUTO 0.04 K/mm3 (0.00-0.23); BASOPHILS PERCENT AUTO 1 % (0-2); EOSINOPHILS ABSOLUTE AUTO 0.19 K/mm3 (0.00-0.68); EOSINOPHILS PERCENT AUTO 4 % (0-6); Hematocrit 43.2 % (33.0-51.0); Hemoglobin 14.0 g/dL (11.5-16.0); IMMATURE GRAN ABSOLUTE AUTO 0.02 K/mm3 (0.00-0.10); IMMATURE GRAN PERCENT AUTO 0 % (0-1); LYMPHOCYTES ABSOLUTE AUTO 1.58 K/mm3 (0.84-5.20); LYMPHOCYTES PERCENT AUTO 30 % (21-46); MONOCYTES ABSOLUTE AUTO 0.54 K/mm3 (0.16-1.47); MONOCYTES PERCENT AUTO 10 % (4-13); Mean Corpuscular HGB Conc 32.4 g/dL (31.5-36.5); Mean Corpuscular Volume 88 fL (80-100); NEUTROPHILS ABSOLUTE AUTO 2.92 K/mm3 (1.96-9.15); NEUTROPHILS PERCENT AUTO 55 % (41-73); NRBC ABSOLUTE 0.00 K/mm3 (0.00-0.02); NRBC Auto 0.0 /100 WBC (0.0-0.2); Platelet Count 275 K/mm3 (150-400); RDW Coefficient Variation 14.5 % (11.7-14.2); RDW Standard Deviation 46.2 fL (35.1-46.3)
[2025-05-31 10:56] LABS: Alanine Aminotransfer (ALT/SGP 26.0 U/L (12-78); Albumin, Blood 3.2 g/dL (3.4-5.0); Albumin/Globulin Ratio 0.8 (0.8-1.8); Anion Gap 8.0 mmol/L (3-11); Aspartate Aminotrans (AST/SGOT 28.0 U/L (12-37); Bilirubin, Total 0.4 mg/dL (0.1-1.0); Blood Urea Nitrogen 16.0 mg/dL (8-24); CO2, Blood 26.0 mmol/L (21-32); Calcium, Blood 8.5 mg/dL (8.5-10.1); Chloride, Blood 107.0 mmol/L (98-108); Creatinine, Blood 0.62 mg/dL (0.40-1.00); Globulin, Blood 3.8 g/dL (2.2-4.0); Glucose, Blood 94.0 mg/dL (70-99); Potassium, Blood 3.8 mmol/L (3.5-5.5); Sodium, Blood 137.0 mmol/L (136-145); Total Protein, Blood 7.0 g/dL (6.4-8.2)
[2025-05-31] MEDS ORDERED: Ketorolac Tromethamine 30mg Vial IV ONE (12:10)
== END 2025-05-31 12:37 | disposition home or self-care (01) ==
LOC: ER 09:55
PROVIDERS: Emergency Medicine
DX: R07.9 Chest pain, unspecified (principal); M79.10 Myalgia, unspecified site; I10 Essential (primary) hypertension; J45.909 Unspecified asthma, uncomplicated; F32.A Depression, unspecified; Z88.8 Allergy status to other drugs, medicaments and biological substances; Z88.2 Allergy status to sulfonamides; Z88.5 Allergy status to narcotic agent; Z79.899 Other long term (current) drug therapy
CPT/HCPCS: 71046; 80053; 83690; 84484; 85025; 93005; 93010; J1885